=== PATIENT | female | born 1990 | race Caucasian/White ===

== ENCOUNTER 2020-04-12 16:38 | Inpatient (IN) | payer OTHER ==
[~2020-04-12] VITALS: Ht 160 cm; Wt 68.0 kg
[~2020-04-12 16:38] MED LIST: BACTRIM DS TAB1 EACH PO; CEPHALEXIN500 MG PO
--- NOTE | 2020-04-12 18:44 | NUR ---
COVID SWAB RAPID COLLECTED ,SENT TO [facility], NO COMPLICATIONS
--- NOTE | 2020-04-12 22:26 | NUR ---
04/12/202225 Cristin Clarke 2208 PATIENT INTO ROOM FROM OR, AWAKE. REPORTS NO PAIN AT THIS TIME. FUNDAL CHECKS WNL. IV TO RIGHT FA INFUSING WELL. VSS. 2214 PATIENT SITTING UP, APPEARS AWAKE, HOLDING BABY. PAIN WELL CONTROLLED. NO OTHER NEEDS AT THIS TIME. 2224 PATIENT ATTEMPTING TO BREAST FEED . PAIN WELL CONTROLLED. FUNDAL CHECKS WNL.
--- NOTE | 2020-04-13 10:17 | PR ---
[facility] [address] [facility] [place], [place] [address] Signed PP Progress Notes Datetime Report Generated by CPN: 04/13/2020 10:17 SUBJECTIVE: [id number] Pain: Within Normal Limits Nausea/Vomiting: Denies Flatus: Yes Bowel Movement: No Vital Signs: [id number] Vital Signs: Reviewed; Within Normal Limits Cardiovascular: Normal Respiratory: Normal Abdomen/Uterus: Normal Lochia: Normal Vulva/Perineum: Not Done Breasts: Not Done CVA Tenderness: Normal Extremities: Normal Incision: Normal Progress: Normal Exam Comments: Fundus firm U-2 nontender. Incision healing well w/ chad in place IMPRESSION/PLAN/PROCEDURES: [id number] Impression: Normal Progression Plan: Continue Present Management Progress Notes: Pt seen and examined. Doing well. Ambulating, and tolerating full diet. Pain and lochia minimal. well. No concerns. Consider d/c home tomorrow depending on status. All questions answered Signing Physician: Johnson Marie DO Copies: ~ *Electronically Signed* 04/13/20 1017 JOHNSON MARIE DO PATIENT NAME: JOEL NASCIMENTO PROGRESS NOTE DATE OF : 86 PHYSICIAN: JOHNSON MARIE DO RPT #: [id number] REPORT IS CONFIDENTIAL AND NOT TO BE RELEASED WITHOUT AUTHORIZATION
--- NOTE | 2020-04-14 08:47 | PR ---
[facility] [address] [place], [place] [address] Signed PP Progress Notes Datetime Report Generated by CPN: 04/14/2020 08:47 SUBJECTIVE: [id number] Pain: Within Normal Limits Nausea/Vomiting: Denies Flatus: Yes Bowel Movement: No Vital Signs: [id number] Vital Signs: Reviewed; Within Normal Limits Cardiovascular: Normal Respiratory: Normal Abdomen/Uterus: Normal Lochia: Normal Vulva/Perineum: Not Done Breasts: Normal CVA Tenderness: Normal Extremities: Normal Incision: Normal Progress: Normal Exam Comments: RRR CTAB Fundus firm below umbilicus No lower extremity edema Incision healing well IMPRESSION/PLAN/PROCEDURES: [id number] Impression: Normal Progression Plan: Continue Present Management; Remove Marielle; Discharge Progress Notes: POD #2 s/p RLTCS at 37.2 weeks gestation for non-reassuring cord dopplers, FGR, h/o prior CSD x 2 -progressing well VSS no dizziness/lightheadedness with ambulation well with nipple shield tolerating regular diet desires pill for contraception -anticipate DC today, to boarder status if baby to remain inpatient Signing Physician: Corbin Phoenix DO *Electronically Signed* 04/14/20 0847 CORBIN PHOENIX DO PATIENT NAME: JOEL NASCIMENTO PROGRESS NOTE DATE OF : 88 PHYSICIAN: CORBIN PHOENIX DO RPT #: [id number] REPORT IS CONFIDENTIAL AND NOT TO BE RELEASED WITHOUT AUTHORIZATION [facility] [address] [place] [id number] Signed Copies: ~ *Electronically Signed* 04/14/20 0847 CORBIN PHOENIX DO PATIENT NAME: JOEL NASCIMENTO PROGRESS NOTE DATE OF : 86 PHYSICIAN: CORBIN PHOENIX DO RPT #: [id number] REPORT IS CONFIDENTIAL AND NOT TO BE RELEASED WITHOUT AUTHORIZATION
--- NOTE | 2020-04-18 07:14 | OR ---
[facility] [address] [place], [place] [address] Signed DATE OF OPERATION: 04/12/2020 SURGEON: Corbin Phoenix DO BANK VAULT CUSTODIAN: Kellen Wheeler MD PREOPERATIVE DIAGNOSES: growth restriction, nonreassuring cord Dopplers, 37 weeks gestation, history of prior x2. POSTOPERATIVE DIAGNOSES: growth restriction, nonreassuring cord Dopplers, 37 weeks gestation, history of prior x2. OPERATIVE PROCEDURE: Repeat low-transverse . LINES: None. DRAINS: Garcia catheter. SPECIMENS: Segment of umbilical cord, cord blood, placenta. FINDINGS: Term, viable male , 5 pounds 0 ounces. Apgars 8 and 9 at 1 and 5 minutes respectively. Moderate scarring of rectus and fascia. Significant rectus diastasis. Mild adhesion of bladder to anterior uterus. Otherwise, normal appearing uterus and bilateral tubes and ovaries. EBL: 550mL INDICATIONS: The patient is a 30-year-old -0-0-2 at 37 and 2 weeks gestation, who was seen in the office today for routine OB care. She has not yet completed her ordered BPP and cord Dopplers . She was sent directly to the birthing center for further assessment. BPP was 11/26 Electronically Signed By: CORBIN PHOENIX DO 04/18/20 0714 PATIENT NAME: JOEL NASCIMENTO OPERATIVE REPORT DATE OF : 86 REPORT #: [id number] PHYSICIAN: CORBIN PHOENIX DO PCP: NO PRIMARY CARE PHYSICIAN REPORT IS CONFIDENTIAL AND NOT TO BE RELEASED WITHOUT AUTHORIZATION [facility] [address] [place], [place] [address] Signed with reassuring NST. However, cord Dopplers were significant for S/D ratio in 98th percentile, RI 99th percentile, and SI 99th percentile. Delivery is recommended. Risks, benefits, and alternatives to repeat were discussed with the patient. DESCRIPTION OF PROCEDURE: The patient was taken to the operating room. Spinal anesthesia was placed and she was positioned in supine position with a leftward tilt. She was given 2 g of Ancef preoperatively. IPCs were placed, then a Garcia catheter was placed. She was prepped and draped in the normal sterile fashion. Adequate spinal anesthesia was confirmed with a pinch test. Incision was made through a prior Pfannenstiel incision scar and carried down to the underlying fascia with scalpel and Bovie cautery. Fascia was incised with a scalpel and extended laterally with Carroll scissors with some difficulty due to her moderate to dense adhesions. Inferior margin of the fascia was grasped and elevated with Kochers and underlying rectus muscle was dissected off bluntly and sharply with Carroll scissors. The superior margin was grasped with Kochers, elevated, and the underlying rectus muscle was dissected off bluntly and sharply with Carroll scissors. Peritoneum was entered bluntly and extended inferiorly with Carroll scissors with good visualization of the bladder. It was extended superiorly with lateral traction. Mason retractor was placed. Uterine incision was made with a scalpel and extended laterally with gentle superior and inferior digital traction. 's head was easily elevated to the hysterotomy and baby was delivered without difficulty. Cord was immediately doubly clamped and cut and baby was handed to the waiting spinner tender. Segment of cord was obtained per spinner tender's request and cord blood was collected for type and Poli. Placenta was delivered manually with gentle cord traction. Uterus was cleared of clots and debris and hysterotomy was closed in a double-layered fashion, first with 0-Monocryl in a running locked fashion, then with 0 Monocryl in an imbricating manner. The extension of the left apex was noted, which was repaired with 0 Monocryl in a simple interrupted fashion. She also had a bleeding vessel noted just medial to the right apex, which was dressed with 0 Monocryl in a [id number] fashion. Hemostasis was noted. Abdomen was irrigated with sterile saline. Uterus, tubes, and ovaries were inspected, with findings as noted above. Mason retractor was removed and sheet of ACell was applied over the hysterotomy. Peritoneum was closed in a running fashion with 2-0 Vicryl. After this, the fascia was grasped with a Sherrie superiorly and inferiorly. Rectus muscle was reapproximated at midline with 0 vicryl in a simple interrupted fashion. Perforating vessels were cauterized with Bovie cautery and ACell powder was applied over the rectus muscles. Fascia was closed with 0-Vicryl in a running fashion with 2 separate stitches, each starting at each apex and working medially to meet at midline. Subcutaneous layer was closed with 3-0 Vicryl in a simple interrupted fashion. Skin was closed with skin clips. Lap and sponge counts were Electronically Signed By: CORBIN PHOENIX DO 04/18/20 0714 PATIENT NAME: JOEL NASCIMENTO OPERATIVE REPORT DATE OF : 86 REPORT #: [id number] PHYSICIAN: CORBIN PHOENIX DO PCP: NO PRIMARY CARE PHYSICIAN REPORT IS CONFIDENTIAL AND NOT TO BE RELEASED WITHOUT AUTHORIZATION [facility] [address] [place] [place] [address] Signed correct. The patient tolerated the procedure well and was taken to recovery room in stable and satisfactory condition. DO SILVIA Camara/SAUL /[id number] Copies: ~ Electronically Signed By: CORBIN PHOENIX DO 04/18/20 0714 PATIENT NAME: JOEL NASCIMENTO OPERATIVE REPORT DATE OF : 86 REPORT #: [id number] PHYSICIAN: CORBIN PHOENIX DO PCP: NO PRIMARY CARE PHYSICIAN REPORT IS CONFIDENTIAL AND NOT TO BE RELEASED WITHOUT AUTHORIZATION
== END 2020-04-14 13:50 | disposition home or self-care (01) | DRG 787 ==
LOC: FBCO 16:38 → FBC 18:05
PROVIDERS: ADMIT Obstetrics & Gynecology; ATTEND Obstetrics & Gynecology
PROC: 10D00Z1 Extraction of Products of Conception, Low, Open Approach (ICD-10-PCS; principal; 2020-04-12 21:30)
DX: O34.211 Maternal care for low transverse scar from previous cesarean delivery (principal); O99.324 Drug use complicating childbirth; N85.8 Other specified noninflammatory disorders of uterus; Z3A.37 37 weeks gestation of pregnancy; Z37.0 Single live birth; O76 Abnormality in fetal heart rate and rhythm complicating labor and delivery; O71.89 Other specified obstetric trauma; O36.5930 Maternal care for other known or suspected poor fetal growth, third trimester, not applicable or unspecified; F12.90 Cannabis use, unspecified, uncomplicated
CPT/HCPCS: 01961; 36415; 76818; 85027; A9270; C9803; J0690; J1650; J1885; J2001; J2274; J2405; J2590; J3010; J7121; U0003

== ENCOUNTER 2021-10-01 18:37 | Emergency (ER) | payer OTHER ==
[~2021-10-01] VITALS: Ht 160 cm; Wt 68.1 kg
[2021-10-01] MEDS ORDERED: CARAFATE1 GM PO (21:23)
== END 2021-10-01 21:36 | disposition home or self-care (01) ==
LOC: ED 18:37
DX: K29.70 Gastritis, unspecified, without bleeding (principal); Z20.822 Contact with and (suspected) exposure to COVID-19
CPT/HCPCS: 36415; 80053; 83690; 85025; 87502; 96374; 99284-25; A9270; C9803; J2405; J7030; U0003

== ENCOUNTER 2023-02-04 13:36 | Emergency (ER) | payer OTHER ==
[~2023-02-04] VITALS: Ht 152.4 cm; Wt 63.5 kg
[~2023-02-04 13:36] MED LIST changes: +CARAFATE1 GM PO
[2023-02-04] MEDS ORDERED: HYDROCODON-ACE1 EA10 PO (15:22)
[2023-02-04 15:35] VITALS: BP 104/73
== END 2023-02-04 15:35 | disposition home or self-care (01) ==
LOC: ED 13:36
DX: S82.831A Other fracture of upper and lower end of right fibula, initial encounter for closed fracture (principal); S82.51XA Displaced fracture of medial malleolus of right tibia, initial encounter for closed fracture; W19.XXXA Unspecified fall, initial encounter; Z79.899 Other long term (current) drug therapy
CPT/HCPCS: 73610

== ENCOUNTER 2023-02-17 19:37 | Emergency (ER) | payer OTHER ==
[~2023-02-17] VITALS: Ht 160 cm; Wt 66.7 kg
[~2023-02-17 19:37] MED LIST changes: +HYDROCODON-ACE1 EA10 PO; +HYDROCODON-ACE1 EA11 PO; +IBUPROFEN800 MG PO
--- OUTSIDE RECORDS SUMMARY | 2023-02-17 19:38 | XMS ---
PreManage Notification: JOEL NASCIMENTO Security [employer]er Events No recent Security Events currently on file CRITERIA MET - [facility] [place] [facility] - 2 Visits in 30 Days CARE PROVIDERS -Stacy- Dentist: Medicaid Plan Compliance Director [facility] PHONE: [phone] -, Tabatha- Dentist: Medicaid Plan Compliance Director [facility] PHONE: [phone] Jamaal has no Care Guidelines for this patient. EUmm VISIT COUNT (12 MO.) 2 [facility] TOTAL 2 NOTE: Visits indicate total known visits. ED/UCC VISIT TRACKING (12 MO.) 02/17/2023 19:[address] [facility] [place] TYPE: Emergency COMPLAINT: - POST OP PROBLEM 02/04/2023 13:37 [facility] [place] TYPE: Emergency COMPLAINT: - R ANKLE PAIN DIAGNOSES: - Displaced fracture of medial malleolus of right tibia, initial encounter for closed fracture - Other fracture of upper and lower end of right fibula, initial encounter for closed fracture - Other halfway (current) drug therapy - Pain in right ankle and joints of right foot - Unspecified fall, initial encounter INPATIENT VISIT TRACKING (12 MO.) No inpatient visits to display in this time frame [email or web address]
[2023-02-17 21:45] VITALS: BP 108/62
== END 2023-02-17 21:45 | disposition home or self-care (01) ==
LOC: ED 19:37
DX: L76.22 Postprocedural hemorrhage of skin and subcutaneous tissue following other procedure (principal); Z96.7 Presence of other bone and tendon implants
CPT/HCPCS: 99283

== ENCOUNTER 2023-06-07 14:02 | Emergency (ER) | payer OTHER ==
[~2023-06-07] VITALS: Ht 160 cm; Wt 64.3 kg
[2023-06-07] MEDS ORDERED: NAPHCON-A EYE D15 ML OPTH (14:32)
[2023-06-07 14:43] VITALS: BP 123/86
== END 2023-06-07 14:45 | disposition home or self-care (01) ==
LOC: ED 14:02
DX: H10.023 Other mucopurulent conjunctivitis, bilateral (principal); B97.89 Other viral agents as the cause of diseases classified elsewhere
CPT/HCPCS: 99283

== ENCOUNTER 2024-08-21 15:16 | Emergency (ER) | payer OTHER ==
[~2024-08-21] VITALS: Ht 160 cm; Wt 59.4 kg
[~2024-08-21 15:16] MED LIST changes: +FLONASE ALLERG9.9 ML NAS; +NAPHCON-A EYE D15 ML OPTH
[2024-08-21 16:15] LABS: BASOPHILS 1.6 % (0-2); EOSINOPHILS 2.3 % (0-6); HEMATOCRIT 42.8 % (35.0-50.0); HEMOGLOBIN 14.7 g/dL (12.0-18.0); LYMPHOCYTES 28.9 % (24-44); MCH 33.1 (27-36); MCHC 34.3 g/dl (30-36); MCV 96.3 fl (81-99); MONOCYTES 8.4 % (0-12); NEUTROPHILS 58.8 % (39-80); PLATELET COUNT 365 K/uL (140-440); RBC 4.44 M/ul (4.3-5.7); RDW 13.3 (10.5-15.0)
[2024-08-21 16:29] LABS: ALBUMIN 4.1 g/dL (3.4-5.0); ANION GAP 13.7 (7-21); BILIRUBIN, TOTAL 0.4 mg/dL (0.2-1.0); BUN/CREATININE RATIO 14.6 (6.0-28.6); CALCIUM 8.8 mg/dL (8.5-10.1); CREATININE, SERUM 0.89 mg/dL (0.55-1.02); POTASSIUM 3.7 mmol/L (3.5-5.1); PROTEIN, TOTAL 8.2 g/dL (6.4-8.2)
[2024-08-21 18:08] VITALS: BP 118/98
== END 2024-08-21 18:08 | disposition home or self-care (01) ==
LOC: ED 15:16
PROVIDERS: Emergency Medicine
DX: S92.345A Nondisplaced fracture of fourth metatarsal bone, left foot, initial encounter for closed fracture (principal); W18.30XA Fall on same level, unspecified, initial encounter; Z79.51 Long term (current) use of inhaled steroids
CPT/HCPCS: 36415; 73630; 80053; 85025; 99283

== ENCOUNTER 2025-02-16 17:24 | Emergency (ER) | payer OTHER ==
[~2025-02-16] VITALS: Ht 160 cm; Wt 61.6 kg
[2025-02-16 18:59] LABS: BASOPHILS 1.2 % (0.1-1.2); EOSINOPHILS 2.0 % (0.7-5.8); LYMPHOCYTES 25.7 % (19.3-51.7); MCH 33.0 PG (25.6-32.2); MCHC 33.0 g/dL (32.2-35.5); MCV 100.0 fL (79.4-94.8); MONOCYTES 7.6 % (4.7-12.5); NEUTROPHILS 62.9 % (34.0-71.1); RBC 4.03 M/uL (3.93-5.22)
[2025-02-16 19:14] LABS: ALT (SGPT) 25.0 U/L (14-59); AST (SGOT) 25.0 U/L (15-37); GLOMERULAR FILTRATION RATE,EST 101.0 mL/min (>60); PROTEIN, TOTAL 7.8 g/dL (6.4-8.2); UREA NITROGEN 12.0 mg/dL (7-18)
[2025-02-16] MEDS ORDERED: NALOXONE 4 MG NASAL SPRAY #2 HOME.PACK NAS ONE (21:15)
[2025-02-16 21:48] VITALS: BP 110/75
== END 2025-02-16 21:52 | disposition home or self-care (01) ==
LOC: ED 17:24
PROVIDERS: Emergency Medicine
DX: T40.411A Poisoning by fentanyl or fentanyl analogs, accidental (unintentional), initial encounter (principal); R41.82 Altered mental status, unspecified
CPT/HCPCS: 36415; 80053; 85025; 99284; J3490